=== PATIENT | male | born 1990 | race Caucasian/White ===

== ENCOUNTER 2016-12-26 12:51 | Emergency (ER) | payer MEDICAID ==
[2016-12-26 13:08] VITALS: BP 130/90; PULSE 103; RESP 16; TEMP 98.8; O2SAT 99
--- NOTE | 2016-12-26 13:17 | EDPHY ---
H & P Time Seen by Provider: 12/26/16 13:16 HPI/ROS: Chief complaint. Super depressed HPI. 18-year-old male presents emergency department with depression and anxiety this been gradually worsening over 3 months. He denies any specific event but says "little bit of everything ". He has a history of depression and anxiety and has previously been on medication. He has never been hospitalized. He denies suicide or homicide ideation. He denies drugs and alcohol. He does have an appointment with mental health in 2 weeks but feels he can't wait this long. He denies recent illness. He can't sleep. His mind is racing. He wakes up depressed and tearful. ROS Constitutional. Depressed Eyes. no problems with vision ENT. no sore throat, no nasal drainage Cardiovascular. no chest pain Respiratory. no shortness of breath, no cough Abdominal. no abdominal pain, no nausea/vomiting, no diarrhea . no problems urinating MS. no calf pain/swelling, no neck/back pain, no joint pain Skin. no rash Lymph. no swollen glands Neuro. no headache, no dizziness, no difficulty walking or with speech Past Medical/Surgical History: Anxiety, depression, attention deficit hyperactivity disorder Social History: Single, daily smoker, no alcohol Smoking Status: Current every day smoker Physical Exam: General Appearance: Alert though depressed and tearful well-developed male moderate distress vital signs stable Eyes: Pupils equal and round no pallor or injection. ENT, Mouth: Mucous membranes are moist. Respiratory: There are no retractions, lungs are clear to auscultation. Cardiovascular: Regular rate and rhythm. Gastrointestinal: Abdomen is soft and nontender, no masses, bowel sounds normal. Neurological: Awake and alert, sensory and motor exams grossly normal. Skin: Warm and dry, no rashes. Musculoskeletal: Neck is supple nontender. Extremities symmetrical, full range of motion. Psychiatric: Patient is oriented X 3, there is no agitation. Constitutional: Initial Vital Signs Temperature (C) 37.1 C 12/26/16 13:04 Heart Rate 103 H 12/26/16 13:04 Respiratory Rate 16 12/26/16 13:04 Blood Pressure 130/90 H 12/26/16 13:04 O2 Sat (%) 99 12/26/16 13:04 O2 Delivery Mode Room Air Allergies/Adverse Reactions: ibuprofen Allergy (Verified 12/26/16 13:08) Home Medications: Medication Instructions Recorded NK [No Known Home Meds] 12/26/16 Medical Decision Making ED Course/Re-evaluation: I consulted and discussed case with [facility] and they will see him today at their 24 hour walk-in clinic. I discussed the options with the patient using the 24 hour walk-in clinic verses the 24 hour crisis line. He would like to go to the walk-in clinic on [address] [place] and realizes he might have to wait. He has his grandfather here with him to transport him. Again patient is not suicidal or homicidal Differential Diagnosis: Depression and anxiety in a patient with history of depression and anxiety. He has been previously on medication but is no longer on medication. He is not homicidal or suicidal. He is stable physically to go to the walk-in clinic for mental health. Departure - Departure Disposition: Home, Routine, Self-Care Clinical Impression: Depression Qualifiers: Depression Type: major depressive disorder Major depression recurrence: recurrent Active/Remission status: currently active Major depression episode severity: moderate Qualified Code(s): F33.1 - Major depressive disorder, recurrent, moderate Condition: Fair Instructions: Depression (ED) Additional Instructions: Go to the walk-in clinic for [facility] and they will see you today. Return for thoughts of harming yourself or others The address is: [facility] [address] [place] [address]. [place], [place] [address] Referrals: NONE *PRIMARY CARE P,. [Primary Care Provider] - As per Instructions [facility] [Outside] - As per Instructions
== END 2016-12-26 13:55 | disposition home or self-care (01) ==
LOC: EDSTATUS 12:51 → CED 12:51
DX: F33.1 Major depressive disorder, recurrent, moderate (principal); F17.200 Nicotine dependence, unspecified, uncomplicated